=== PATIENT | female | born 1995 | race Caucasian/White ===

== ENCOUNTER 2021-03-23 17:27 | Emergency (ER) | payer MEDICAID, OTHER ==
[2021-03-23 18:21] LABS: BASOPHILS % (AUTO) 0.5 %; EOSINOPHILS # (AUTO) 0.1 10^3/uL (0.0-0.7); EOSINOPHILS % (AUTO) 3.6 %; HCT - HEMATOCRIT 41.2 % (37.0-47.0); HGB - HEMOGLOBIN 13.8 g/dL (12.0-16.0); LYMPHOCYTES # (AUTO) 0.6 10^3/uL (1.5-3.5); LYMPHOCYTES % (AUTO) 15.5 %; MEAN CORPUSCULAR HEMOGLOBIN 30.5 pg (27.0-31.0); MEAN CORPUSCULAR HGB CONC 33.5 g/dL (32.0-36.0); MEAN CORPUSCULAR VOLUME 90.9 fL (81.0-99.0); MONOCYTES # (AUTO) 0.6 10^3/uL (0.0-1.0); NEUTROPHILS # (AUTO) 2.6 10^3/uL (1.5-6.6); NEUTROPHILS % (AUTO) 66.1 %; PLT - PLATELET COUNT 187 10^3/uL (130-450); RED BLOOD COUNT 4.53 10^6/uL (4.20-5.40); RED CELL DISTRIBUTION WIDTH 13.1 % (12.0-15.0); WHITE BLOOD COUNT 3.9 x10^3/uL (4.8-10.8)
[2021-03-23 18:27] LABS: BILIRUBIN,URINE NEGATIVE (NEGATIVE); GLUCOSE, URINE (UA) NEGATIVE (NEGATIVE); KETONES,URINE (UA) NEGATIVE (NEGATIVE); LEUKOCYTE ESTERASE, URINE NEGATIVE (NEGATIVE); NITRITE,URINE NEGATIVE (NEGATIVE); OCCULT BLOOD,URINE TRACE-INTA (NEGATIVE); PH,URINE 7.5 PH (5.0-7.5); PROTEIN,URINE NEGATIVE (NEGATIVE); UROBILINOGEN,URINE 0.2 (NORMAL) E.U./dL (NORMAL)
[2021-03-23 18:32] LABS: ALBUMIN 4.3 g/dL (3.2-5.5); ALBUMIN/GLOBULIN RATIO 1.3 (1.0-2.2); BILIRUBIN,TOTAL 0.4 mg/dL (0.2-1.0); CALCIUM 9.1 mg/dL (8.5-10.3); TOTAL PROTEIN 7.6 g/dL (6.7-8.2)
[2021-03-23 18:36] LABS: CLARITY,URINE CLEAR (CLEAR); HCG UR QUAL NEGATIVE
[2021-03-23 19:13] VITALS: BP 123/63
[2021-03-23] MEDS ORDERED: iohexoL-300 100 ML VIAL ONE (20:18)
--- NOTE | 2021-03-23 20:18 | ED Physician Documentation ---
History of Present Illness - Stated complaint Stated Complaint: FEMALE - Chief complaint Chief Complaint: Abd Pain - Additonal information Additional information: 26-year-old female presents emergency department for evaluation of dysuria, urgency and frequency. She states that she was in a coma earlier today. Her roommate could not wake her up took her temperature and found her to have a temperature of 105. Patient is also having low back pain. No nausea or vomiting. Patient is not yet vaccinated for COVID-19 for personal reasons. Review of Systems Constitutional: reports: Fever, Chills, Myalgias Eyes: reports: Reviewed and negative Ears: reports: Reviewed and negative Nose: reports: Reviewed and negative Throat: reports: Reviewed and negative Cardiac: reports: Reviewed and negative Respiratory: reports: Reviewed and negative GI: reports: Abdominal Pain : reports: Dysuria, Frequency, Hesitancy Skin: reports: Reviewed and negative Musculoskeletal: reports: Back pain Neurologic: reports: Reviewed and negative PD PAST MEDICAL HISTORY - Past Medical History Past Medical History: No - Past Surgical History Past Surgical History: No - Present Medications Home Medications: Ambulatory Orders Medication Instructions Recorded Confirmed Nitrofurantoin [Macrobid] 100 mg PO BID #14 cap 03/23/21 - Allergies Allergies/Adverse Reactions: Allergies Allergy/AdvReac Type Severity Reaction Status Date / Time amoxicillin Allergy Unknown Verified 03/23/21 17:40 Penicillins Allergy Unknown Verified 03/23/21 17:40 - Social History Does the pt smoke?: No Smoking Status: Never smoker Does the pt drink ETOH?: Yes - Immunizations Immunizations are current?: Yes PD ED PE NORMAL - General General: Alert and oriented X 3, No acute distress, Well developed/nourished - HEENT HEENT: Atraumatic, Moist mucous membranes - Neck Neck: Supple, no meningeal sign, No adenopathy - Cardiac Cardiac: RRR, No murmur - Respiratory Respiratory: No respiratory distress, Clear bilaterally - Abdomen Abdomen: Normal bowel sounds, Soft, Non distended. No: Non tender (Mild tenderness to suprapubic area without guarding or rebound. 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 Eye Opening: Spontaneous Motor: Obeys Commands Verbal: Oriented GCS Score: 15 - Psych Psych: Normal mood Results - Vitals Vitals: Vital Signs - 24 hr 03/23/21 03/23/21 17:35 19:12 Temperature 38.0 C H 38.1 C H Heart Rate 104 H 98 Respiratory 18 20 Rate Blood Pressure 145/80 H 123/63 O2 Saturation 97 97 Oxygen O2 Source Room air - Labs Labs: Laboratory Tests 03/23/21 03/23/21 03/23/21 17:48 18:15 18:15 WBC 3.9 L RBC 4.53 Hgb 13.8 Hct 41.2 MCV 90.9 MCH 30.5 MCHC 33.5 RDW 13.1 Plt Count 187 MPV 10.0 Neut # (Auto) 2.6 Lymph # (Auto) 0.6 L [place] # (Auto) 0.6 Eos # (Auto) 0.1 Baso # (Auto) 0.0 Absolute Nucleated RBC 0.00 Nucleated RBC % 0.0 Sodium 133 L Potassium 4.0 Chloride 101 Carbon Dioxide 23 Anion Gap 9.0 BUN 12 Creatinine 1.0 Estimated GFR (MDRD) 67 L Glucose 90 Calcium 9.1 Total Bilirubin 0.4 AST 17 ALT 19 Alkaline Phosphatase 45 Total Protein 7.6 Albumin 4.3 Globulin 3.3 Albumin/Globulin Ratio 1.3 Lipase 27 Urine Color YELLOW Urine Clarity CLEAR Urine pH 7.5 Ur Specific [place] 1.015 Urine Protein NEGATIVE Urine Glucose (UA) NEGATIVE Urine Ketones NEGATIVE Urine Occult Blood TRACE-INTA Urine Nitrite NEGATIVE Urine Bilirubin NEGATIVE Urine Urobilinogen 0.2 (NORMAL) Ur Leukocyte Esterase NEGATIVE Ur Microscopic Review NOT INDICATED Urine Culture Comments NOT INDICATED Urine HCG, Qual NEGATIVE - Rads (name of study) CXR Radiology: Final report received (No acute cardiopulmonary pathology.) CT abd Radiology: Final report received (Normal appendix. No bowel obstruction or abnormal bowel wall thickening. No free fluid or free air. Mild diffuse bladder wall thickening concerning for cystitis. No discrete bladder wall mass. No renal stone or hydronephrosis. No prior nephric fat stranding. Mild hepatic steatosis.) PD MEDICAL DECISION MAKING - ED course Complexity details: reviewed old records, reviewed results, re-evaluated patient, considered differential, d/w patient ED course: 26-year-old female presents emergency department for evaluation of a fever reportedly 105, dysuria, urgency, and low back pain. Symptoms began today. Screening labs show a mildly reduced white blood cell count only. No findings of infection in the urine. She has not yet vaccinated for COVID-19 and the test is pending on her today. Reassuringly there is no hypoxia and her chest x-ray is unremarkable. I was able to elicit some suprapubic tenderness. Given this finding and no infection in the urine a CT of the abdomen was completed. It does show mild bladder inflammation. I discussed with the patient that I would prefer to defer antibiotics unless the culture is positive but she is very concerned that this is too soon to see infection in the urine. Thus we will start her on Macrobid. A Chlamydia gonorrhea screen is pending on her which could also cause equivalent symptoms though it is doubtful since she denies any pelvic pain or vaginal discharge. I have advised her to remain in quarantine until the test results are known. Emergent worrisome return precautions were discussed. Departure - Departure Disposition: 01 Home, Self Care Clinical Impression: Dysuria Low back pain Qualifiers: Chronicity: acute Back pain laterality: bilateral Sciatica presence: without sciatica Qualified Code(s): M54.50 - Low back pain, unspecified Fever Qualifiers: Fever type: unspecified Qualified Code(s): R50.9 - Fever, unspecified Condition: Stable Record reviewed to determine appropriate education?: Yes Prescriptions: Nitrofurantoin [Macrobid] 100 mg PO BID #14 cap Comments: Jeanine torres were seen in the emergency department today for fever, low back pain and painful urination. Your screening labs showed a mildly reduced white blood cell count only. There were no findings of infection in the urine. We did do a chest x-ray that showed no pneumonia. CT of the abdomen suggest that your bladder is mildly inflamed. I am sending a prescription for an antibiotic called Macrobid to the pharmacy ([facility]). If the urine culture is negative we will call you and ask you to stop the antibiotic. We are also doing a routine screening for chlamydia and gonorrhea which can cause similar symptoms. I am concerned however that your symptoms could be due to COVID-19 therefore we are screening you for COVID. We may not have the results back for 48 to 72 hour s. You must remain in quarantine until the test results are known. Please have somebody fill the prescription for the antibiotic and drop it off at your house. If despite the antibiotics, your symptoms worsen, you develop chest pain, have uncontrolled vomiting or fevers then please return immediately to the ER. You have a Covid test pending. You need to self quarantine until the result is done and negative. Do not leave your house. Do not get near anybody. The results should be done in 48 to 72 hours. We will call with a positive result, the fastest way to get a negative result for confirmation though is to go to the hospital website at [email or web address], click on the my [email or web address] tab and sign up for the patient portal. If any friends or family get sick and would like to have a Covid test done, but do not have signs or symptoms that would necessitate being hospitalized, there are multiple local options for Covid testing. [facility] keeps an updated list of testing and vaccination options at [email or web address]
--- NOTE | 2021-03-23 20:44 | XRAY Report ---
PROCEDURE: Chest 1 View X-Ray INDICATIONS: chest pain TECHNIQUE: One view of the chest was acquired. COMPARISON: None. FINDINGS: Surgical changes and devices: None. Lungs and pleura: No pleural effusions or pneumothorax. Lungs are clear. Mediastinum: Mediastinal contours appear normal. Heart size is normal. Bones and chest wall: No suspicious bony lesions. Overlying soft tissues appear unremarkable. IMPRESSION: No acute cardiopulmonary pathology. Reviewed by: James Noguera MD on 03/23/2021 8:42 PM PST Approved by: James Noguera MD on 03/23/2021 8:42 PM PST Station ID: [id number]
--- NOTE | 2021-03-23 20:47 | CT Report ---
PROCEDURE: Abdomen/Pelvis W INDICATIONS: low back pain; dysuria; ? pyelo CONTRAST: IV CONTRAST: Isovue 300 ml: 100 PO CONTRAST: *NO PO CONTRAST TECHNIQUE: After the administration of IV contrast, 5 mm thick sections acquired from the diaphragms to the symp hysis. 5 mm thick coronal and sagittal reformats were acquired. For radiation dose reduction, the f ollowing was used: automated exposure control, adjustment of mA and/or kV according to patient size. COMPARISON: None. FINDINGS: Image quality: Excellent. ABDOMEN: Lung bases: Lung bases are clear. Heart size is normal. Solid organs: Mild hepatic steatosis is seen. Liver is normal in size. No discrete hepatic lesion is seen. Spleen is normal in size and enhancement. Gallbladder is within normal limits. Biliary syste m is non dilated. Pancreas enhances normally. No adrenal nodules. Kidneys demonstrate normal size and enhancement, without hydronephrosis. Peritoneum and bowel: Bowel loops demonstrate normal wall thickness and caliber. No free fluid or a ir. Appendix is visualized and is within normal limits. Nodes and vessels: No retroperitoneal or mesenteric adenopathy by size criteria. Aorta and inferior vena cava are normal in size. Miscellaneous: No ventral hernias. PELVIS: Genitourinary: There is mild diffuse bladder wall thickening. No discrete bladder wall mass is seen. Uterus and bilateral ovaries show no gross abnormality. Miscellaneous: No inguinal hernias or adenopathy. Bones: No suspicious bony lesions. No vertebral body compression fractures. IMPRESSION: 1. Normal appendix. No bowel obstruction or abnormal bowel wall thickening. No free fluid of free air . 2. Mild diffuse bladder wall thickening concerning for cystitis. No discrete bladder wall mass. No re nal stone or hydronephrosis. No perinephric fat stranding or fluid. 3. Mild hepatic steatosis. Reviewed by: James Lebron MD on 03/23/2021 8:46 PM PST Approved by: James Lebron MD on 03/23/2021 8:46 PM PST Station ID: [id number]
[2021-03-23] MEDS: SODIUM CHLORIDE 0.9% 1,000 ML IV STA (20:49)
[2021-03-23] MEDS: iohexoL-300 100 ML VIAL IVP ONE (21:15)
[2021-03-23 23:46] LABS: CHLAMYDIA TRACHOMATIS DNA NEGATIVE (NEGATIVE); NEISSERIA GONORRHOEAE DNA NEGATIVE (NEGATIVE); TRICHOMONAS VAGINALIS DNA NEGATIVE (NEGATIVE)
== END 2021-03-23 21:55 | disposition home or self-care (01) ==
LOC: ED 17:27
DX: R30.0 Dysuria (principal); M54.50 Low back pain, unspecified; R50.9 Fever, unspecified; R07.89 Other chest pain
CPT/HCPCS: 36415; 71045; 74177; 80053; 81003; 81025; 83690; 85025; 87040; 87077; 87086; 87491; 87591; 87661; 99283; 99284; Q9967; 81001

== ENCOUNTER 2021-07-13 08:00 | Outpatient (CLI) | payer OTHER, MEDICAID | END 2021-07-13 23:59 | disposition home or self-care (01) | LOC: LAB.S 08:00 | PROVIDERS: ATTEND Physician Assistant | DX: R09.81 Nasal congestion (principal); Z20.822 Contact with and (suspected) exposure to COVID-19 ==

== ENCOUNTER 2021-08-16 20:23 | Outpatient (CLI) | payer OTHER, MEDICAID ==
--- NOTE | 2021-08-16 22:12 | Ultrasound Report ---
PROCEDURE: OB First Trimester w/TV INDICATIONS: SUPERVISION OF OUTSIDE/PRIOR DATING DATA: Last menstrual period (LMP): 06/19/2021. LMP-based estimated date of delivery (DIRK): 03/16/2022. TECHNIQUE: Real-time scanning was performed of the fetus and maternal pelvic organs, with image documentation. Endovaginal scanning was also performed to better visualize the fetus and maternal ovaries. COMPARISON: [facility] OB ultrasound 08/10/2021 FINDINGS: No intrauterine gestational sac or pole identified. The endometrium is thickened, measuring up to 1.5 cm, with heterogeneous filling defects in the lower uterine segment. There is suggestion of in ternal vascularity within the endometrium on color Doppler interrogation. The findings likely represe nt a spontaneous in progress with suspected retained products of conception or blood product in the lower uterine segment. Maternal organs: The right ovary measures 2.0 x 1.9 x 2.7 cm and the left ovary measures 2.6 x 1.7 x 3.1 cm. There is a hyperechoic cystic structure within the left ovary measuring up to 1.8 cm likely r epresenting a corpus luteal cyst. IMPRESSION: 1. No intrauterine identified. Specifically, the previously visualized pole and gesta tional sac are not visualized on the current study. Findings likely represent a spontaneous in progress. 2. Thickened, heterogeneous endometrium with filling defects in the lower uterine segment suggestive of retained products of conception or blood product. 3. Probable corpus luteal cyst in the left ovary. Reviewed by: Misael Dunlap MD on 08/16/2021 10:10 PM PDT Approved by: Misael Dunlap MD on 08/16/2021 10:10 PM PDT Station ID: [id number]
== END 2021-08-16 20:24 | disposition home or self-care (01) ==
LOC: DI 20:23
PROVIDERS: ATTEND Obstetrics & Gynecology
DX: Z34.01 Encounter for supervision of normal first pregnancy, first trimester (principal)

== ENCOUNTER 2023-08-09 16:17 | Outpatient (CLI) | payer MEDICAID | END 2023-08-09 16:18 | disposition home or self-care (01) | LOC: RT 16:17 | PROVIDERS: ATTEND Physician Assistant | DX: J45.909 Unspecified asthma, uncomplicated (principal) | CPT/HCPCS: 94010 ==